=== PATIENT | male | born 1990 | race Caucasian/White ===

== ENCOUNTER 2017-12-28 11:13 | Emergency (ER) | payer OTHER ==
[2017-12-28 11:20] VITALS: TEMP 97.9; O2SAT 99
[2017-12-28] MEDS ORDERED: IBUPROFEN 600 MG TAB PO ONE (11:21)
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
[2017-12-28] MEDS ORDERED: TDAP ADULT 0.5 ML INJ (BOOSTRIX) IM ONE (15:23)
[2017-12-28 16:08] VITALS: BP 138/56; PULSE 82; RESP 14
== END 2017-12-28 16:06 | disposition home or self-care (01) ==
DX: S82.832A Other fracture of upper and lower end of left fibula, initial encounter for closed fracture (principal); S82.392A Other fracture of lower end of left tibia, initial encounter for closed fracture; Z23 Encounter for immunization; V29.9XXA Motorcycle rider (driver) (passenger) injured in unspecified traffic accident, initial encounter; Y92.410 Unspecified street and highway as the place of occurrence of the external cause; Y93.55 Activity, bike riding

== ENCOUNTER 2018-01-08 07:50 | Day surgery (SDC) | payer OTHER ==
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
[2018-01-08] MEDS ORDERED: LR 1,000 ML IV ONE (08:25)
[2018-01-08] MEDS ORDERED: ceFAZolin 2 GM/SWFI 2 GM/20 ML SYR IVP ONE (08:42)
[2018-01-08 08:52] VITALS: PULSE 115
[2018-01-08] MEDS ORDERED: DIAZEPAM 5 MG TAB PO ONE (09:00)
[2018-01-08] MEDS ORDERED: MIDAZOLAM 2 MG/2 ML VIAL ONE (09:31)
[2018-01-08] MEDS ORDERED: fentaNYL 100 MCG/2 ML INJ ONE ×3 (09:32→12:32)
[2018-01-08] MEDS ORDERED: BUPIVACAINE 0.25% 30 ML SDV ONE (09:47)
[2018-01-08] MEDS ORDERED: LIDOCAINE 1% 300 MG/30 ML SDV ONE (09:47)
[2018-01-08] MEDS ORDERED: BACITRACIN OPHTHALMIC OINTMENT ONE (09:48)
--- NOTE | 2018-01-08 09:49 | PDANEPAE ---
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 - Neurologic History Hx Cerebrovascular Accident: No Hx Seizures: No Hx Dementia: No - Endocrine History Hx Diabetes: No - Renal History Hx Renal Disorders: No - Liver History Hx Hepatic Disorders: No - Neurological & Psychiatric Hx Hx Neurological and Psychiatric Disorders: No - Cancer History Hx Cancer: No - Congenital Disorder History Hx Congenital Disorders: No - GI History Hx Gastrointestinal Disorders: No - Other Health History Other Health History: NEG - Chronic Pain History Chronic Pain: No - Surgical History Prior Surgeries: NONE ANE Review of Systems Review of Systems: - Exercise capacity METS (RN): 4 METS ANE Patient History - Allergies Allergies/Adverse Reactions: No Known Allergies Allergy (Unverified 12/28/17 11:17) - NPO status NPO Since - Liquids (Date): 01/07/18 NPO Since - Liquids (Time): 23:00 NPO Since - Solids (Date): 01/07/18 NPO Since - Solids (Time): 21:00 - Smoking Hx Smoking Status: Never smoked - Family Anes Hx Family Hx Anesthesia Complications: NEG ANE Labs/Vital Signs - Vital Signs Blood Pressure: 145/97 Heart Rate: 115 Respiratory Rate: 18 O2 Sat (%): 96 Height: 193.04 cm Weight: 90.718 kg ANE Physical Exam - Airway Neck exam: FROM Mallampati Score: Class 1 Mouth exam: normal dental/mouth exam - Cardiovascular Cardiovascular: regular rate and rhythym - ASA Status ASA Status: I ANE Anesthesia Plan Anesthesia Plan: general endotracheal anesthesia Regional Anesthesia: adductor canal FNB, popliteal SNB
[2018-01-08] MEDS ORDERED: PROPOFOL 200 MG/20 ML VIAL ONE (09:52)
[2018-01-08] MEDS ORDERED: ONDANSETRON 4 MG/2 ML VIAL ONE ×2 (10:34→14:34)
[2018-01-08] MEDS ORDERED: ROCURONIUM 50 MG/5 ML VIAL ONE (10:34)
[2018-01-08] MEDS ORDERED: DEXAMETHASONE 4 MG/ML VIAL ONE (10:34)
[2018-01-08] MEDS ORDERED: ROPIVACAINE HCL 150 MG/30 ML INJ ONE (10:35)
[2018-01-08] MEDS ORDERED: LIDOCAINE 2% 5 ML SDV ONE (10:35)
[2018-01-08] MEDS ORDERED: HYDROmorphONE/DILAUDID 2 MG/ML INJ ONE (11:37)
[2018-01-08] MEDS ORDERED: BACITRACIN ZINC 14.2 GM OINTTUBE TP ONE (12:53)
[2018-01-08] MEDS ORDERED: ONDANSETRON 4 MG/2 ML VIAL IVP PRN ×2 (12:57→14:07)
[2018-01-08] MEDS ORDERED: NALOXONE HCL 0.4 MG/ML INJ IVP PRN (12:57)
[2018-01-08] MEDS ORDERED: fentaNYL 100 MCG/2 ML INJ IVP PRN (12:57)
[2018-01-08] MEDS ORDERED: HYDROmorphONE/DILAUDID 1 MG/ML INJ IVP PRN (12:57)
[2018-01-08] MEDS ORDERED: OXYCODONE/APAP 5/325 TAB PO PRN ×2 (12:57→14:07)
[2018-01-08] MEDS ORDERED: PROMETHAZINE HCL 25 MG/ML INJ IVP PRN (12:57)
[2018-01-08] MEDS ORDERED: LABETALOL HCL 5 MG/ML 20 ML MDV ONE (13:47)
[2018-01-08] MEDS ORDERED: ONDANSETRON DISINTEGRATING 4 MG TAB PO PRN (14:07)
--- NOTE | 2018-01-08 14:07 | POSTOPPROG ---
Post Op Note Date of Operation: 01/08/18 Surgeon: Irving Cifuentes Anesthesia: GET(General Endotracheal) Pre-op Diagnosis: Left ankle trimalleolar fracture Post-op Diagnosis: Same Procedure: ORIF Left trimalleolar ankle Inf/Abcess present in the surg proc area at time of surgery?: No EBL: 50-100
--- NOTE | 2018-01-08 14:15 | POSTANESTH ---
Post Anesthetic Evaluation Cardiovascular Status: Normal, Stable Respiratory Status: Normal, Stable Level of Consciousness/Mental Status: Can Participate in Eval Pain Control: Adequate, Prn Tx Ordered Nausea/Vomiting Control: Adequate, Prn Tx Ordered Complications Possibly Related to Anesthesia: None Noted
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
[2018-01-08] MEDS ORDERED: PROMETHAZINE HCL 25 MG/ML INJ ONE (14:45)
[2018-01-08 14:49] VITALS: RESP 16
[2018-01-08 15:00] VITALS: TEMP 98.1
[2018-01-08 17:25] VITALS: BP 152/84; O2SAT 88
== END 2018-01-08 17:20 | disposition home or self-care (01) ==
LOC: FSGY 07:50
PROVIDERS: ATTEND Orthopaedic Surgery
DX: S82.852A Displaced trimalleolar fracture of left lower leg, initial encounter for closed fracture (principal); V19.9XXA Pedal cyclist (driver) (passenger) injured in unspecified traffic accident, initial encounter; Y93.55 Activity, bike riding
CPT/HCPCS: C1713; J0690; J1100; J1170; J2250; J2405; J2550; J2704; J2795; J3010

== ENCOUNTER 2018-01-10 07:11 | Emergency (ER) | payer OTHER ==
--- NOTE | 2018-01-10 07:37 | EDPHY ---
H & P Time Seen by Provider: 01/10/18 07:31 HPI/ROS: CHIEF COMPLAINT: Numbness in left foot HISTORY OF PRESENT ILLNESS: 48 hr ago had left trimalleolar ankle surgery including a popliteal and adductor nerve block with ropivacaine. Patient presents because his foot is still numb. He has some pins and needles feeling but can feel light touch. Minimal pain. REVIEW OF SYSTEMS: No fever or chills PAST MEDICAL HISTORY: Trimalleolar fracture General Appearance: Alert and conversant, cooperative. Patient has normal capillary refill. Compartments in his upper thigh are soft. He can move his toes and has sensation to light touch although he says it is "pins and needles"decreased from usual. Emergency Department course/MDM: I think it is unlikely the patient would have compartment syndrome. Possibility of nerve injury from surgery is not completely excluded. More likely is he continues to have numbness from his nerve block. Reasonable to discharge with precautions to return if worsening symptoms. Discussed with Dr. Cifuentes at 7:45 a.m., okay to discharge of his proximal calf is nontender which is true. Heart rate 85. Follow-up with Orthopedics on Friday. Smoking Status: Never smoked Constitutional: Initial Vital Signs Temperature (C) 36.8 C 01/10/18 07:16 Heart Rate 123 H 01/10/18 07:16 Respiratory Rate 17 01/10/18 07:16 Blood Pressure 163/126 H 01/10/18 07:16 O2 Sat (%) 94 01/10/18 07:16 O2 Delivery Mode Room Air Allergies/Adverse Reactions: No Known Allergies Allergy (Verified 01/10/18 07:14) Home Medications: Medication Instructions Recorded Aspirin EC [Aspirin EC 325 mg (*)] 325 mg PO DAILY #21 tab 01/08/18 oxyCODONE IR [Oxycodone Ir (*)] 5 - 10 mg PO Q4H PRN #60 tab 01/08/18 MDM/Departure - Depart Disposition: Home, Routine, Self-Care Clinical Impression: Foot paresthesia from nerve block Condition: Good Instructions: Peripheral Nerve Block (DC) Additional Instructions: Please return for evaluation if symptoms do not get better in the next 24 hr or if you develop pain or inability to move toes. Referrals: Irving Cifuentes MD [Medical Doctor] - 01/13/18
[2018-01-10 08:13] VITALS: BP 141/92; PULSE 85; RESP 18; TEMP 98.4; O2SAT 96
== END 2018-01-10 08:11 | disposition home or self-care (01) ==
DX: R20.2 Paresthesia of skin (principal); Z79.82 Long term (current) use of aspirin